=== PATIENT | female | born 1945 | race Caucasian/White ===

== ENCOUNTER → 2016-03-07 | Outpatient (CLI) | payer BC ==
[~2016-03-07] MED LIST: ASPI81TA28 PO; CALC500C70 PO; CHOL100010 PO; GLUC250C PO; MAGN250T3 PO; OMEG10007 PO; POLY335025 PO; RSTOPS OPB; VITA400C15 PO
--- NOTE | 2016-03-07 12:07 | DIAGNOSTIC IMAGING REPORT ---
RIGHT HIP UNILATERAL 2 VIEWS CLINICAL HISTORY: Right hip pain COMPARISON: None. DISCUSSION: 2 views reveal no fractures or dislocations. There are no erosive or destructive changes. The joint space appears well-preserved for age. IMPRESSION: Unremarkable conventional radiographic evaluation of the right hip for age Electronically signed by: Dylan Barrera M.D. 03/07/2016 12:05 PM Dictated Date/Time: 03/07/2016 12:04 PM
== END | disposition home or self-care (01) ==
LOC: C.RADBC 11:34
PROVIDERS: ATTEND Internal Medicine Geriatric Medicine
DX: M25.559 Pain in unspecified hip (principal)

== ENCOUNTER → 2016-05-03 | Outpatient (CLI) | payer BC ==
[2016-05-03 19:01] LABS: BLOOD UREA NITROGEN 19 mg/dl (7-18); BUN/CREATININE RATIO 25.3 (10-20); CALCIUM 9.1 mg/dl (8.5-10.1); CARBON DIOXIDE 29 mmol/L (21-32); CHLORIDE 104 mmol/L (98-107); CREATININE 0.76 mg/dl (0.60-1.20); GLUCOSE 97 mg/dl (70-99); SODIUM 141 mmol/L (136-145)
== END | disposition home or self-care (01) ==
LOC: C.LABMFLN 07:47
PROVIDERS: ATTEND Internal Medicine Geriatric Medicine
DX: M54.16 Radiculopathy, lumbar region (principal)

== ENCOUNTER → 2016-05-07 | Outpatient (CLI) | payer BC ==
[~2016-05-07] MED LIST changes: +GADAVIST IV PRN
--- NOTE | 2016-05-07 12:40 | DIAGNOSTIC IMAGING REPORT ---
LUMBAR SPINE MRI WITH AND WITHOUT CONTRAST HISTORY: Pain. Neuropathy. G96.19 Arachnoid cyst of [id number] Lumbar [id number] TECHNIQUE: Multiplanar multisequence MRI of the lumbar spine was performed both before and after the intravenous administration of contrast. COMPARISON: 09/25/2011 FINDINGS: For the purpose of the report the L5-S1 disc space will be located on axial image 27 of 37. Signal characteristics of the vertebral bodies as well as intervertebral disc appear unremarkable. Multiple Tarlov's and or synovial cysts are identified primarily at the S1-S2 level but are also seen involving neuroforamina at L4 and L5. Basal sagittal images these appear similar compared to the prior study. L1-L2: No significant central canal or neural foraminal narrowing. L2-L3: No significant central canal or neural foraminal narrowing. L3-L4: Small synovial cysts involving the left neural foramina. This is somewhat diminished compared to the prior study. L4-L5: Tarlov's and or synovial cysts occupying the left neural foramina with mild expansion of the structure. This is unchanged from the prior study. L5-S1: No evidence of disc herniation or spinal stenosis. Several relatively large Tarlov cysts occupying the S1-S2 and to lesser extent L5 level of the lumbosacral spine. This is essentially unchanged from the prior study. No evidence for abnormal postcontrast enhancement. IMPRESSION: 1. Multiple Tarlov's and or synovial cysts primarily involving the low lumbosacral region and to a lesser extent left neural foramina of the mid to lower lumbar spine again the left. 2. No evidence of disc herniation or spinal stenosis. 3. No significant change compared to a prior study dated 09/25/2011 Electronically signed by: Angelito Eisenberg M.D. 05/07/2016 12:38 PM Dictated Date/Time: 05/07/2016 12:29 PM
== END | disposition home or self-care (01) ==
LOC: C.MRIBC 11:28
PROVIDERS: ATTEND Internal Medicine Geriatric Medicine
DX: G96.19 Other disorders of meninges, not elsewhere classified (principal); M54.16 Radiculopathy, lumbar region

== ENCOUNTER → 2016-06-12 | Outpatient (CLI) | payer BC ==
[~2016-06-12] MED LIST changes: -GADAVIST IV PRN
--- NOTE | 2016-06-12 16:30 | MAMMOGRAPHY REPORT ---
BILATERAL DIGITAL SCREENING MAMMOGRAM WITH CAD: 06/12/2016 CLINICAL HISTORY: Routine screening. Patient has no complaints. TECHNIQUE: Bilateral CC, MLO and right XCCM views were obtained. Current study was also evaluated w ith a Computer Aided Detection (CAD) system. COMPARISON: Comparison is made to exams dated: 06/10/2015 mammogram, 06/08/2014 mammogram, 01/16/2013 mammogram, 01/14/2012 mammogram, 01/08/2011 mammogram, and 01/02/2010 mammogram - [facility]. BREAST COMPOSITION: The tissue of both breasts is heterogeneously dense, which may obscure small ma sses. FINDINGS: The parenchymal pattern is similar to prior exams. No developing mass, architectural dis tortion or cluster of suspicious microcalcifications is seen in either breast. IMPRESSION: ACR BI-RADS CATEGORY 2: BENIGN There is no mammographic evidence of malignancy. A 1 year screening mammogram is recommended. The p atient will receive written notification of the results. Approximately 10% of breast cancers are not detected with mammography. A negative mammographic repor t should not delay biopsy if a clinically suggestive mass is present. Emi Villa M.D. ay/:06/12/2016 15:54:42 Seo Analyst: Patience KOCH(Lois)(Chandrika)(BD), [facility] letter sent: Normal 1/2 BI-RADS Code: ACR BI-RADS Category 2: Benign
== END | disposition home or self-care (01) ==
LOC: C.MAMM 09:01
PROVIDERS: ATTEND Internal Medicine Geriatric Medicine
DX: Z12.31 Encounter for screening mammogram for malignant neoplasm of breast (principal)

== ENCOUNTER → 2016-06-13 | Outpatient (CLI) | payer BC ==
--- NOTE | 2016-06-13 07:59 | DIAGNOSTIC IMAGING REPORT ---
MRI THE RIGHT HIP NO CONTRAST CLINICAL HISTORY: Right hip and proximal leg pain COMPARISON STUDY: MRI the lumbar spine dated 05/07/2016 FINDINGS: Imaging was acquired in the sagittal axial and coronal planes. There are no areas of marrow edema to indicate occult fracture or avascular necrosis. There is no evidence of pathologic adenopathy. There is no evidence of a pathologic joint effusion. There is no evidence of pathologic muscular edema. Multiple lumbar and sacral perineural cysts are visualized. IMPRESSION: 1. No evidence of occult fracture or avascular necrosis 2. No evidence of pathologic muscular edema 3. Multiple sacral and lumbar perineural cysts. Electronically signed by: Dylan Barrera M.D. 06/13/2016 7:57 AM Dictated Date/Time: 06/13/2016 7:54 AM
== END | disposition home or self-care (01) ==
LOC: C.MRIBC 06:58
PROVIDERS: ATTEND Internal Medicine Geriatric Medicine
DX: M25.551 Pain in right hip (principal); G96.8 Other specified disorders of central nervous system

== ENCOUNTER → 2017-06-14 | Outpatient (CLI) | payer BC ==
--- NOTE | 2017-06-17 08:07 | MAMMOGRAPHY REPORT ---
BILATERAL DIGITAL SCREENING MAMMOGRAM TOMOSYNTHESIS WITH CAD: 06/14/2017 CLINICAL HISTORY: Routine screening. Patient has no complaints. TECHNIQUE: Breast tomosynthesis in addition to standard 2D mammography was performed. Current study was also evaluated with a Computer Aided Detection (CAD) system. COMPARISON: Comparison is made to exams dated: 06/12/2016 mammogram, 06/10/2015 mammogram, 06/08/2014 m ammogram, 01/16/2013 mammogram, 01/14/2012 mammogram, and 01/08/2011 mammogram - [facility]. BREAST COMPOSITION: The tissue of both breasts is heterogeneously dense, which may obscure small mas ses. FINDINGS: No suspicious masses, calcifications, or areas of architectural distortion are noted in ei ther breast. There has been no significant interval change compared to prior exams. IMPRESSION: ACR BI-RADS CATEGORY 1: NEGATIVE There is no mammographic evidence of malignancy. A 1 year screening mammogram is recommended. The pa tient will receive written notification of the results. Approximately 10% of breast cancers are not detected with mammography. A negative mammographic report should not delay biopsy if a clinically suggestive mass is present. Dania Burr M.D. ah/:06/14/2017 12:26:08 Hydraulic Spinner: Estelle KOCH(R)(M), [facility] letter sent: Normal 1/2 BI-RADS Code: ACR BI-RADS Category 1: Negative
== END | disposition home or self-care (01) ==
LOC: C.MAMM 09:12
PROVIDERS: ATTEND Family Medicine
DX: Z12.31 Encounter for screening mammogram for malignant neoplasm of breast (principal)